=== PATIENT | male | born 1950 | race Caucasian/White ===

== ENCOUNTER 2017-02-13 00:02 | Inpatient (IN) | payer OTHER ==
--- NOTE | ~2017-02-13 | DS ---
Discharge Summary [facility] [address] [place]. [address] NAME: CAMILO MALIN : 46 STATUS : DIS IN PAT#: [id number] AGE: 66 ADM/REG DATE : 02/15/17 MR#: [id number] REPORT SERV DATE: 02/19/17 DICTATED BY: ZAID SARAVIA DATE: 02/18/17 REPORT STATUS : Draft TRANSCRIBED BY: MODL DATE: 02/18/17 ADMISSION DATE: 02/15/2017 DISCHARGE DATE: 02/18/2017 CONDITION ON DISCHARGE: Stable. DISPOSITION: Discharged to home with home health nurse and home PT/OT. Home health nurse is for med assistance and Home PT/OT is for strengthening as the patient is deconditioned. Reason for home health is also because the patient has congestive heart failure which is chronic and COPD and insulin-requiring diabetes mellitus, which all qualify for home health. DIAGNOSES ON DISCHARGE: 1. Acute exacerbation of chronic systolic and diastolic heart failure - resolved with appropriate diuresis. 2. Chronic atrial fibrillation with rapid ventricular response rate - resolved, now the patient is only in chronic atrial fibrillation, but ventricular response rate is well controlled with digoxin and beta-alia. 3. Chronic hypoxic respiratory failure for which the patient is on home oxygen at 3 liters/minute - stable. 4. Acute exacerbation of chronic obstructive pulmonary disease - resolved. 5. Chronic insulin-dependent diabetes mellitus, which is stable at this time with current insulin regimen. 6. Left lower extremity cellulitis for which the patient will be continuing clindamycin 450 mg p.o. t.i.d. for the next four more days. 7. Hypertension, which is stable. 8. Chronic kidney disease, stage II with baseline creatinine of about 1.2 or so, which is stable. 9. General deconditioning. 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 Specifically, the patient has no peripheral vascular disease as his bilateral arterial Doppler came back negative for any peripheral vascular disease. The patient may have microvascular disease, but no major peripheral vascular disease in both lower extremities in this admission at least. 11.Chronic congestive heart failure from cardiomyopathy with an ejection fraction of only 40%, which is chronic next. BRIEF HOSPITAL COURSE: Mr. Malin is a 66-year-old male patient who was admitted here on 02/15/2017. He was actually transferred from [facility] with acute hypoxic respiratory failure. The patient's acute hypoxic respiratory failure was from a combination of both acute exacerbation of heart failure and acute exacerbation of COPD. Cardiology was consulted. The patient was diuresed and placed on supplemental oxygen and prednisone. The patient was given breathing treatments. Also, the patient developed rapid ventricular response rate with chronic atrial fibrillation. Cardiology suggested that he be on Cardizem IV drip for some time, and with this, his ventricular response rate got controlled. Presently, he is rate controlled with digoxin and beta-alia, namely metoprolol. The patient has had chronic AFib and is anticoagulated with Pradaxa for this. Discharge Summary [place] [id number] [facility] [place]. [address] NAME: CAMILO MALIN : 46 STATUS : DIS IN PAT#: [id number] AGE: 66 ADM/REG DATE : 02/15/17 MR#: [id number] REPORT SERV DATE: 02/19/17 DICTATED BY: ZAID SARAVIA DATE: 02/18/17 REPORT STATUS : Draft TRANSCRIBED BY: JAQUAN DATE: 02/18/17 During the course in the hospital once his acute hypoxia resolved and his respiratory status improved, the patient continued to be on clindamycin for his left lower extremity cellulitis. This is also improved and is stable, but he needs four more days of clindamycin. Since he complained of bilateral severe leg pain, the patient did get an arterial Doppler of both lower extremities, this came back negative for any arterial blockage. Also, clinically, the patient is at low risk for DVT at this time as he is already anticoagulated with Pradaxa. Hence, his cold lower extremities and pain and tingling in the lower extremities is definitely from diabetic neuropathy from longstanding diabetes. The patient is aware of this. The patient is now being sent home in stable condition with home health nurse and home PT/OT on the following medications. The only new medications that have been added to his medication list include Bumex 1 mg p.o. b.i.d. instead of the Lasix 80 mg once a day and lisinopril 2.5 mg once a day. The patient will continue clindamycin 450 mg p.o. t.i.d. for four more days for the left lower extremity cellulitis and stop. The patient will otherwise continue all his home medications exactly like the way he takes it except the Lasix as I have substituted the Lasix with Bumex as dictated above. A prescription for the newly prescribed medications have been written and the patient will follow up with PCP in the next one to two weeks for continuation of these prescriptions. I have given him a month's supply of the new medications. On the day of discharge, the patient has had the following labs and relevant radiological tests: 1. First of all, his ejection fraction continues to be low at 40%, but this is chronic and stable. 2. His labs show that his sodium is 136, potassium 4.7, BUN is 20, and creatinine is 0.9. 3. His WBC count on 02/15/2017 was 7.9, hemoglobin 10.1, and hematocrit 32. 4. His troponin I was normal on 02/13/2017 at 0.03. BNP stays chronically elevated and on 02/14/2017, it was 272 and I suspect that his baseline is somewhere around 200. His TSH is normal. Hence, the patient is being discharged home in stable condition and I have spent about 40 minutes in coordinating discharge care of this patient including [id number] encounter and summarizing this discharge. DICTATED BY: Wilmer Dallas/JAQUAN Zaid Saravia M.D. / [id number] CC: Wilmer Dallas TIUNDRA LESHAUN
--- NOTE | ~2017-02-13 | HP ---
History And Physical [place] [address] [place]. [address] NAME: CAMILO MALIN : 46 STATUS : ADM Jerson PAT#: [id number] AGE: 66 ADM/REG DATE : 02/13/17 MR#: [id number] REPORT SERV DATE: 02/13/17 DICTATED BY: JELANI BLUE DATE: 02/13/17 REPORT STATUS : Draft TRANSCRIBED BY: MODL DATE: 02/13/17 DATE OF ADMISSION: 02/13/2017 CHIEF COMPLAINT: This is a patient, I had accepted and transferred from [facility] after speaking with the ER physician there. HISTORY OF PRESENT ILLNESS: Briefly, according to the ER physician there who I had spoken with, Mr. Malin was treated as an inpatient at [facility] for a week prior to for congestive heart failure. He was discharged about 24 hours ago, but returned to the ER with worsening symptoms. The patient returned with increased shortness of breath. He was diaphoretic and had bilateral wheezing. Upon arrival, he had atrial fibrillation with rapid ventricular response at a rate of 130 as well. He was treated with Cardizem as a single dose, treated with nebulizers, and small bolus of IV fluids according to the ER physician there. They then decided to transfer the patient here to be evaluated by Cardiology and to have an echocardiogram done. The patient was initially admitted there and treated at [facility] for similar symptoms. At the time of my evaluation, Mr. Malin denied any chest pain or palpitations. He had no palpitations or orthopnea. He had a cough, which was essentially nonproductive, not associated with any hemoptysis, night sweats, or weight loss. He did not have any fevers or chills. Denied any nausea, vomiting, or diarrhea. No other history of recent travel or exposures other than those mentioned above. PAST MEDICAL HISTORY: Significant for history of COPD, history of chronic systolic heart failure, hypertension, diabetes mellitus type 2, chronic hypoxemia on supplemental oxygen therapy at home. He also has atrial fibrillation, PTSD, and usually follows at [facility] in [place] or in [facility]. SOCIAL HISTORY: He has a long history of smoking in the past, but has not smoked in many years now. He denies alcohol use or recreational drug use. FAMILY HISTORY: Noncontributory. MEDICATIONS: At home were reviewed by me in the chart today and reordered by me. REVIEW OF SYSTEMS: As in history of present illness. All other systems were reviewed in detail and are quite unremarkable. PHYSICAL EXAMINATION: GENERAL: This is a pleasant 66-year-old, not in any acute distress. HEENT: His head is atraumatic, normocephalic. He is alert, awake, oriented to time, place, and person. Pupils are equal, reacting to light and accommodating. External ocular muscles are intact. Membranes are moist and pink. Sclerae are nonicteric. NECK: Supple with no jugular venous distention, lymphadenopathy, or thyromegaly. LUNGS: Clear to auscultation, although there was diminished air entry bilaterally with bilateral expiratory wheezes as well. He also has an ejection systolic murmur. ABDOMEN: Protuberant, soft, nontender. Bowel sounds are present. History And Physical [address] [address] NAME: CAMILO MALIN : 46 STATUS : ADM Jerson PAT#: [id number] AGE: 66 ADM/REG DATE : 02/13/17 MR#: [id number] REPORT SERV DATE: 02/13/17 DICTATED BY: JELANI BLUE DATE: 02/13/17 REPORT STATUS : Draft TRANSCRIBED BY: JAQUAN DATE: 02/13/17 EXTREMITIES: Trace bilateral pitting lower extremity edema with no cyanosis or clubbing. NEUROLOGIC: Grossly intact. No focal sensory or motor deficits. He was able to move all four extremities. Higher functions appeared intact. VITAL SIGNS: Vital signs today showed a temperature of 97.3, pulse was 99, respirations were 20 a minute, and blood pressure upon arrival here was 113/68, oxygen saturations were 97% breathing 3 L of oxygen via nasal cannula. LABORATORY DATA: Laboratory data and other data which accompanied the patient from [facility] was reviewed by me in the chart today. IMPRESSION: 1. Ydubu-pl-meajnma systolic congestive heart failure. 2. Pulmonary edema. 3. Chronic obstructive pulmonary disease with acute exacerbation. 4. Bilateral lower extremities cellulitis, which is new after inpatient treatment at [facility] according to the patient. 5. Essential hypertension. 6. Diabetes mellitus type 2. 7. Chronic hypoxemia on supplemental oxygen therapy at home. 8. Atrial fibrillation with rapid ventricular response. PLAN: We will admit Mr. Malin to the Hospitalist Service with telemetry for a 24-hour observation. We will start him on bronchodilator treatments for his COPD. Continue steroids and after cultures are obtained, we will start him on vancomycin and cefepime intravenously. We will start him on intravenous diuretics cautiously. Follow output and daily weights and get an echocardiogram in the morning. We will also consult Cardiology Service to consult with him and offer recommendations. We will continue Cardizem as an infusion here for atrial fibrillation and rate control. His digoxin level at [facility] was 0.3, we will re-dose digoxin and continue to monitor. We will also get serial troponins and get an EKG as well. For blood sugar control, we will start him on NovoLog insulin per sliding scale and check his A1c. We will also provide morphine intravenously in small divided doses for pain. He is on anticoagulation on Pradaxa. We will continue this. I have discussed the above plans with the patient. His questions were answered and he is agreeable to the above recommendations. Hospitalist Service will be following him during his stay here. /JAQUAN Jelani Blue M.D. / [id number] CC: Idris Talbert M.D.
--- NOTE | ~2017-02-13 | CN ---
Consultation Report [place] [id number] [place]. [address] NAME: CAMILO NYE : 46 STATUS : ADM Jerson PAT#: [id number] AGE: 66 ADM/REG DATE : 02/13/17 MR#: [id number] REPORT SERV DATE: 02/13/17 DICTATED BY: TYRA RAHMAN JR. DATE: 02/13/17 REPORT STATUS : Draft TRANSCRIBED BY: MODL DATE: 02/13/17 CARDIOLOGY CONSULT DATE OF CONSULTATION: 02/13/2017 [facility] DEV TECHNICAL MGR: Dr. Gumaro Davis. REASON FOR CONSULT: Regarding management of atrial fibrillation with rapid ventricular response, etc. HISTORY OF PRESENT ILLNESS: A 66-year-old white male, currently very drowsy in his room and denying chest pain and current shortness of breath. For the past three weeks, he has had increasing shortness of breath and peripheral edema with purulent sputum. No fever or chills. White count normal. He presented to [facility] with atrial fibrillation, rapid ventricular response. He is currently now rate controlled at 85-95. His atrial fibrillation is chronic. Mitral regurgitation last year on an echocardiogram was moderately severe. Only mild aortic valve thickening was present last year, but exam today suggests possible progression to aortic stenosis. His previous echo showed an ejection fraction of 40% with a left atrial size of only 3.9 cm. He has a history of insulin-dependent diabetes mellitus with peripheral neuropathy, GERD, hyperlipidemia, PTSD. He takes Pradaxa for chronic anticoagulation and metoprolol and digoxin. It is currently being used along with intravenous Cardizem for rate control. ALLERGIES: NO KNOWN DRUG ALLERGIES. MEDICATIONS: Home medication list is reviewed and includes digoxin, Pradaxa, furosemide, metoprolol, pravastatin, Aldactone, as well as other noncardiac medications. SOCIAL HISTORY: . Lives with son. Former [place]. C[facility] the [facility] by Dr. Gumaro Davis, Cardiology. No cigarettes for the past six months. No alcohol. Home O2. COPD. FAMILY HISTORY: No premature coronary artery disease. PHYSICAL EXAMINATION: VITAL SIGNS: Blood pressure 121/72, pulse is 96 and irregularly irregular. Output is greater than intake. Respirations 18. Afebrile. GENERAL: Drowsy, white male, no acute distress. HEART: Systolic ejection murmur suggesting aortic stenosis with radiation to carotids. Apical systolic murmur as well. EXTREMITIES: 1 to 2+ edema. LUNGS: Basilar crackles audible. No wheezes. Consultation Report [facility] [place]. [address] NAME: CAMILO NYE : 46 STATUS : ADM Jerson PAT#: [id number] AGE: 66 ADM/REG DATE : 02/13/17 MR#: [id number] REPORT SERV DATE: 02/13/17 DICTATED BY: TYRA RAHMAN JR. DATE: 02/13/17 REPORT STATUS : Draft TRANSCRIBED BY: JAQUAN DATE: 02/13/17 LABORATORY DATA: Troponin is normal. TSH is normal. Normocytic anemia with hemoglobin 10.5. BUN and creatinine 34 and 1.2 respectively. Potassium is 4.0. His bicarb is elevated at 40. PLAN: Agree with current approach for rate control of his chronic atrial fibrillation. Need to review echocardiogram; if deteriorating ejection fraction, consider switching metoprolol tartrate to carvedilol if blood pressure will allow. Check digoxin level. The physical exam today suggests that his aortic valve may have developed some degree of stenosis since previous study last year. Mitral insufficiency has turned moderately severe. However, his left atrial dimension is only 3.9 cm. Apparently, the left atrial index is elevated with volume index was elevated. He is currently getting treated for bronchitis. Thank you for this consultation. LUCIO/JAQUAN Tyra Rahman Jr., M.D. / [id number] CC: Miguel Simon MD
[~2017-02-13 00:02] MED LIST: AMB5 PO; C1 PO; C2 PO; CARDCD120 PO; CARDCD180 PO; CARDCD240 PO; CLARIT10 PO; COREG3 PO; COUMADIN10 MG PO; COUMADIN3 MG PO; DEMA10T PO; FIORICET 50-301 EACH PO; FISH OIL OTC PO; FISH-EPA1000 MG PO; FLONASE NAS; GLUCOPHAGE1000 MG PO; GLUCOTRO10 PO; INSNOV7030 SC; LAMIS15 TOP; LAN25 PO; LOP50 PO; MAGOX4 PO; MOBIC7.5 PO; NEUR300 PO; NEUR600 PO; OCEAN NAS; PRAVACHOL40 MG PO; PRILO PO; PRILOSEC40 MG PO; PRIN20 PO; PROVHFA INH; ROXICODONE15 MG PO; SPIRIVA INH; STOOL SOFTEN240 MG PO; SYMBICORT 160/41 INH INH; TIAZA1 PO; VITAMIN D1000 UNI1 PO; VITAMIN D31000 UNIT PO; ZESTRIL20 MG PO; ZESTRIL30 MG PO; ZITH250 PO
[2017-02-13 01:26] LABS: TROPONIN I 0.02 NG/ML (<0.05)
[2017-02-13 03:02] LABS: CALCIUM, SERUM 9.3 MG/DL (8.5-10.4); CHLORIDE, SERUM 91 MMOL/L (96-112); CREATININE 1.23 MG/DL (0.70-1.30); GFR AFRICAN AMERICAN 69 ML/MIN (>=60); GFR NON AFRICAN AMERICAN 60 ML/MIN (>=60); POTASSIUM, SERUM 4.4 MMOL/L (3.5-5.3); SODIUM, SERUM 136 MMOL/L (135-148)
[2017-02-13 03:03] LABS: BUN (BLOOD UREA NITROGEN) 38 MG/DL (6-23); CO2 (CARBON DIOXIDE) 36 MMOL/L (24-34); GLUCOSE, SERUM 225 MG/DL (60-99)
[2017-02-13] MEDS ORDERED: SYMBICORT 160/41 INH INH (04:44)
[2017-02-13] MEDS ORDERED: VITAMIN D31000 UNIT PO (04:45)
[2017-02-13] MEDS ORDERED: FLONASE NAS (04:45)
[2017-02-13] MEDS ORDERED: FIORICET 50-301 EACH PO (04:45)
[2017-02-13] MEDS ORDERED: L80 PO (04:46)
[2017-02-13] MEDS ORDERED: INSNOV7030 SC ×2 (04:46)
[2017-02-13] MEDS ORDERED: NEUR800 PO (04:46)
[2017-02-13] MEDS ORDERED: GLUCOPHAGE1000 MG PO (04:47)
[2017-02-13] MEDS ORDERED: CLARIT10 PO (04:47)
[2017-02-13] MEDS ORDERED: MAGNESIUM OX PO (04:47)
[2017-02-13] MEDS ORDERED: ROXICODONE15 MG PO (04:48)
[2017-02-13] MEDS ORDERED: SPIRO25 PO (04:48)
[2017-02-13] MEDS ORDERED: LOP100 PO (04:48)
[2017-02-13] MEDS ORDERED: PRILOSEC40 MG PO (04:48)
[2017-02-13] MEDS ORDERED: PRILO PO (04:48)
[2017-02-13] MEDS ORDERED: TRAZ50 PO (04:49)
[2017-02-13] MEDS ORDERED: LAMIS15 TOP (04:49)
[2017-02-13] MEDS ORDERED: PRAVACHOL40 MG PO (04:50)
[2017-02-13] MEDS ORDERED: SPIRIVA INH (04:50)
[2017-02-13] MEDS ORDERED: VITC500 PO (04:50)
[2017-02-13] MEDS ORDERED: LAN25 PO (04:50)
[2017-02-13] MEDS ORDERED: FISH-EPA1000 MG PO (04:51)
[2017-02-13] MEDS ORDERED: *UNABLE3 (04:52)
[2017-02-13] MEDS ORDERED: PRADAXA150 MG PO (04:59)
[2017-02-13 05:48] LABS: BASOPHILS 0.1 %; BASOPHILS ABSOLUTE 0.01 10/3/uL (0.0-0.16); EOSINOPHILS 1.7 %; EOSINOPHILS ABSOLUTE 0.14 10/3/uL (0.0-0.53); IMMATURE GRANULOCYTES 0.7 %; IMMATURE GRANULOCYTES ABSOLUTE 0.06 10/3/uL (0.0-0.11); LYMPHOCYTES 12.4 %; LYMPHOCYTES ABSOLUTE 1.03 10/3/uL (0.67-4.30); MEAN CORPUSCULAR HEMOGLOB 27.9 pg (26.0-34.0); MEAN PLATELET VOLUME 11.1 fL (9.2-13.0); MONOCYTES 9.8 %; MONOCYTES ABSOLUTE 0.81 10/3/uL (0.21-1.20); NEUTROPHILS 75.3 %; NEUTROPHILS ABSOLUTE 6.24 10/3/uL (2.02-8.40); PLATELET COUNT 206 10/3/uL (150-400); RBC DISTRIBUTION WIDTH 16.1 % (12.0-16.0); WHITE BLOOD CELLS 8.3 10/3/uL (4.5-10.5)
[2017-02-13 05:56] LABS: HEMATOCRIT 33.8 % (40.0-51.0); HEMOGLOBIN 10.5 g/dL (13.6-17.8); MANUAL DIFF NO %; MEAN CORPUS HGB CONC 31.1 g/dL (32.0-36.0); MEAN CORPUSCULAR VOLUME 89.7 fL (80-100); RED CELL COUNT 3.77 10/6/uL (4.7-6.1)
[2017-02-13 06:10] LABS: WBC (NOT ORDERED) (RFLEX) 0 (0-5)
[2017-02-13 06:10] LABS: CALCIUM, SERUM 9.4 MG/DL (8.5-10.4); CHLORIDE, SERUM 87 MMOL/L (96-112); CO2 (CARBON DIOXIDE) 40 MMOL/L (24-34); CREATININE 1.17 MG/DL (0.70-1.30); GFR AFRICAN AMERICAN 74 ML/MIN (>=60); GFR NON AFRICAN AMERICAN 64 ML/MIN (>=60); GLUCOSE, SERUM 228 MG/DL (60-99); SGOT(AST) 24 U/L (5-40); SGPT(ALT) 19 U/L (5-65); SODIUM, SERUM 135 MMOL/L (135-148); TOTAL PROTEIN 7.9 G/DL (6.0-8.5)
[2017-02-13 06:11] LABS: A/G RATIO 1.1 (0.7-1.9); ALBUMIN 4.2 G/DL (3.5-5.0); ALKALINE PHOSPHATASE 97 U/L (45-117); BUN (BLOOD UREA NITROGEN) 34 MG/DL (6-23); GLOBULIN 3.7 G/DL (2.5-4.1); PHOSPHORUS, SERUM 4.1 MG/DL (2.5-4.5)
[2017-02-13 08:58] LABS: ASCORBIC ACID (UR NOT ORDER) NEG (NEG); BILIRUBIN, URINE NEGATIVE (NEG); KETONE, URINE NEGATIVE (NEG); LEUKOCYTE ESTERASE(NOT OR NEG (NEG)
[2017-02-13 10:05] LABS: CPK 40 U/L (0-200); TROPONIN I 0.04 NG/ML (<0.05)
[2017-02-13 10:09] LABS: CK-MB 1.3 NG/ML
[2017-02-13 12:06] LABS: ALLENS TEST Pos; BE (BASE EXCESS) 13.7 MEQ/L (0 +/- 2.5); CARBOXYHEMOGLOBIN 1.1 % (0-3); HCO3 (ACTUAL BICARBONATE) 40.3 MEQ/L (23-27); HEMOBLOGIN CONTENT 10.4 G/DL (14-18); INSTRUMENT SERIAL # 35151; METHEMOGLOBIN 0.4 % (0-3); O2 CONTENT 13.6 VOL% (18-24); PCO2 (CO2 TENSION) 63 MMHG (35-45); PO2 (O2 TENSION) 75 MMHG (79-93); SAMPLE Arterial; pH 7.42 (7.37-7.43)
[2017-02-13 19:07] LABS: CPK 40 U/L (0-200); TROPONIN I 0.03 NG/ML (<0.05)
[2017-02-13 19:09] LABS: CK-MB 1.4 NG/ML
[2017-02-14 07:36] LABS: BASOPHILS 0.3 %; BASOPHILS ABSOLUTE 0.02 10/3/uL (0.0-0.16); EOSINOPHILS 5.1 %; EOSINOPHILS ABSOLUTE 0.35 10/3/uL (0.0-0.53); HEMOGLOBIN 9.3 g/dL (13.6-17.8); IMMATURE GRANULOCYTES 1.2 %; IMMATURE GRANULOCYTES ABSOLUTE 0.08 10/3/uL (0.0-0.11); LYMPHOCYTES 16.2 %; LYMPHOCYTES ABSOLUTE 1.12 10/3/uL (0.67-4.30); MEAN CORPUS HGB CONC 31.4 g/dL (32.0-36.0); MEAN CORPUSCULAR HEMOGLOB 27.6 pg (26.0-34.0); MEAN CORPUSCULAR VOLUME 87.8 fL (80-100); MEAN PLATELET VOLUME 10.7 fL (9.2-13.0); MONOCYTES 13.2 %; MONOCYTES ABSOLUTE 0.91 10/3/uL (0.21-1.20); NEUTROPHILS ABSOLUTE 4.43 10/3/uL (2.02-8.40); PLATELET COUNT 155 10/3/uL (150-400); RBC DISTRIBUTION WIDTH 15.9 % (12.0-16.0); RED CELL COUNT 3.37 10/6/uL (4.7-6.1); WHITE BLOOD CELLS 6.9 10/3/uL (4.5-10.5)
[2017-02-14 07:38] LABS: HEMATOCRIT 29.6 % (40.0-51.0); MANUAL DIFF NO %
[2017-02-14 07:53] LABS: CALCIUM, SERUM 8.5 MG/DL (8.5-10.4); CHLORIDE, SERUM 94 MMOL/L (96-112); CO2 (CARBON DIOXIDE) 39 MMOL/L (24-34); CREATININE 1.09 MG/DL (0.70-1.30); GFR AFRICAN AMERICAN 80 ML/MIN (>=60); GFR NON AFRICAN AMERICAN 69 ML/MIN (>=60); POTASSIUM, SERUM 4.5 MMOL/L (3.5-5.3); SODIUM, SERUM 137 MMOL/L (135-148)
[2017-02-14 07:54] LABS: BUN (BLOOD UREA NITROGEN) 26 MG/DL (6-23); GLUCOSE, SERUM 326 MG/DL (60-99)
[2017-02-15 05:03] LABS: BASOPHILS 0.3 %; BASOPHILS ABSOLUTE 0.02 10/3/uL (0.0-0.16); EOSINOPHILS 4.5 %; EOSINOPHILS ABSOLUTE 0.35 10/3/uL (0.0-0.53); HEMOGLOBIN 10.1 g/dL (13.6-17.8); IMMATURE GRANULOCYTES 1.4 %; IMMATURE GRANULOCYTES ABSOLUTE 0.11 10/3/uL (0.0-0.11); LYMPHOCYTES 23.3 %; LYMPHOCYTES ABSOLUTE 1.83 10/3/uL (0.67-4.30); MEAN CORPUS HGB CONC 31.6 g/dL (32.0-36.0); MEAN CORPUSCULAR HEMOGLOB 27.9 pg (26.0-34.0); MEAN CORPUSCULAR VOLUME 88.4 fL (80-100); MEAN PLATELET VOLUME 11.4 fL (9.2-13.0); MONOCYTES 12.5 %; MONOCYTES ABSOLUTE 0.98 10/3/uL (0.21-1.20); NEUTROPHILS ABSOLUTE 4.56 10/3/uL (2.02-8.40); PLATELET COUNT 175 10/3/uL (150-400); RED CELL COUNT 3.62 10/6/uL (4.7-6.1); WHITE BLOOD CELLS 7.9 10/3/uL (4.5-10.5)
[2017-02-15 05:05] LABS: MANUAL DIFF NO %
[2017-02-15 05:17] LABS: BUN (BLOOD UREA NITROGEN) 26 MG/DL (6-23); CALCIUM, SERUM 8.9 MG/DL (8.5-10.4); CHLORIDE, SERUM 93 MMOL/L (96-112); CREATININE 1.07 MG/DL (0.70-1.30); GFR AFRICAN AMERICAN 82 ML/MIN (>=60); GFR NON AFRICAN AMERICAN 71 ML/MIN (>=60); POTASSIUM, SERUM 4.1 MMOL/L (3.5-5.3); SODIUM, SERUM 136 MMOL/L (135-148)
[2017-02-15 05:23] LABS: CO2 (CARBON DIOXIDE) 42 MMOL/L (24-34); GLUCOSE, SERUM 171 MG/DL (60-99)
[2017-02-16 06:23] LABS: BUN (BLOOD UREA NITROGEN) 29 MG/DL (6-23); CALCIUM, SERUM 8.8 MG/DL (8.5-10.4); CHLORIDE, SERUM 97 MMOL/L (96-112); CO2 (CARBON DIOXIDE) 40 MMOL/L (24-34); CREATININE 1.04 MG/DL (0.70-1.30); GFR AFRICAN AMERICAN 85 ML/MIN (>=60); GFR NON AFRICAN AMERICAN 73 ML/MIN (>=60); GLUCOSE, SERUM 173 MG/DL (60-99); POTASSIUM, SERUM 4.4 MMOL/L (3.5-5.3); SODIUM, SERUM 131 MMOL/L (135-148)
[2017-02-17 05:02] LABS: CALCIUM, SERUM 8.7 MG/DL (8.5-10.4); CHLORIDE, SERUM 97 MMOL/L (96-112); CO2 (CARBON DIOXIDE) 37 MMOL/L (24-34); CREATININE 0.86 MG/DL (0.70-1.30); GFR AFRICAN AMERICAN 103 ML/MIN (>=60); GFR NON AFRICAN AMERICAN 89 ML/MIN (>=60); POTASSIUM, SERUM 4.4 MMOL/L (3.5-5.3)
[2017-02-17 05:03] LABS: BUN (BLOOD UREA NITROGEN) 24 MG/DL (6-23); GLUCOSE, SERUM 61 MG/DL (60-99); SODIUM, SERUM 139 MMOL/L (135-148)
[2017-02-18 06:55] LABS: CALCIUM, SERUM 8.6 MG/DL (8.5-10.4); CHLORIDE, SERUM 100 MMOL/L (96-112); CREATININE 0.95 MG/DL (0.70-1.30); GFR AFRICAN AMERICAN 95 ML/MIN (>=60); GFR NON AFRICAN AMERICAN 82 ML/MIN (>=60); POTASSIUM, SERUM 4.7 MMOL/L (3.5-5.3); SODIUM, SERUM 136 MMOL/L (135-148)
[2017-02-18 06:56] LABS: BUN (BLOOD UREA NITROGEN) 20 MG/DL (6-23); CO2 (CARBON DIOXIDE) 32 MMOL/L (24-34); GLUCOSE, SERUM 183 MG/DL (60-99)
[2017-02-18] MEDS ORDERED: BUM1 PO (11:39)
[2017-02-18] MEDS ORDERED: CLEOCIN300 MG PO (11:40)
[2017-02-18] MEDS ORDERED: PRIN2.5 PO (11:44)
== END 2017-02-18 15:57 | disposition home health service (06) | DRG 291 ==
LOC: 7NO 00:02
PROVIDERS: Internal Medicine; Internal Medicine Cardiovascular Disease; Internal Medicine Pulmonary Disease
DX: I13.0 Hypertensive heart and chronic kidney disease with heart failure and stage 1 through stage 4 chronic kidney disease, or unspecified chronic kidney disease (principal); I50.23 Acute on chronic systolic (congestive) heart failure; J96.21 Acute and chronic respiratory failure with hypoxia; I42.9 Cardiomyopathy, unspecified; J44.1 Chronic obstructive pulmonary disease with (acute) exacerbation; L03.116 Cellulitis of left lower limb; I48.2 Chronic atrial fibrillation; I35.0 Nonrheumatic aortic (valve) stenosis; I73.9 Peripheral vascular disease, unspecified; N18.2 Chronic kidney disease, stage 2 (mild); F43.10 Post-traumatic stress disorder, unspecified; E11.22 Type 2 diabetes mellitus with diabetic chronic kidney disease; E11.40 Type 2 diabetes mellitus with diabetic neuropathy, unspecified; Z79.4 Long term (current) use of insulin; Z87.891 Personal history of nicotine dependence; Z99.81 Dependence on supplemental oxygen
CPT/HCPCS: 36600; 80048; 80053; 81001; 82550; 82553; 82805; 82962; 83735; 83880; 84100; 84443; 84484; 85025; 87040; 93005; 93306; 93923; 94640; A9270-GY; J0692; J1160; J3370